=== PATIENT | female | born 1925 | race Two or more races ===

== ENCOUNTER 2017-03-23 10:05 | Inpatient (IN) | payer OTHER ==
[~2017-03-23] VITALS: Ht 160 cm; Wt 80.3 kg
[2017-03-23] MEDS ORDERED: NORVASC5 MG PO (11:06)
[2017-03-23] MEDS ORDERED: NORVASC2.5 M1 PO (11:06)
[2017-03-23] MEDS ORDERED: LEVOTHY PO (11:06)
[2017-03-23] MEDS ORDERED: CATAFLAN PO (11:07)
[2017-03-23] MEDS ORDERED: [UNRECOGNIZED DRUG - OTHER] PO (11:07)
[2017-03-23] MEDS ORDERED: GARLIC1 EACH PO (11:08)
[2017-03-23] MEDS ORDERED: FISH OIL + D31 EACH PO (11:08)
[2017-03-23] MEDS ORDERED: CLONAZEPAM0.5 MG PO (11:08)
[2017-03-23] MEDS ORDERED: OSTERA TABLET1 EACH PO (11:09)
[2017-04-07] MEDS ORDERED: PERCOCET 5-3251 EACH PO (08:18)
[2017-04-07] MEDS ORDERED: CEFADROXIL500 MG PO (08:18)
[2017-04-07] MEDS ORDERED: XARELTO10 MG PO (08:18)
== END 2017-04-07 17:54 | DRG 470 ==
LOC: O/R 04-04 06:24 → SURG 04-04 06:24 → SURH 04-04 09:45 → SURG 04-04 17:33 → SURH 04-04 17:43 → SURG 04-04 17:56
PROVIDERS: Orthopaedic Surgery
PROC: 0MTM0ZZ Resection of Left Hip Bursa and Ligament, Open Approach (ICD-10-PCS; 2017-04-04)
PROC: 0SRB01Z Replacement of Left Hip Joint with Metal Synthetic Substitute, Open Approach (ICD-10-PCS; principal; 2017-04-04 09:45)
PROC: 30233N1 Transfusion of Nonautologous Red Blood Cells into Peripheral Vein, Percutaneous Approach (ICD-10-PCS; 2017-04-05)
DX: M16.12 Unilateral primary osteoarthritis, left hip (principal); D62 Acute posthemorrhagic anemia; E11.9 Type 2 diabetes mellitus without complications; I10 Essential (primary) hypertension; M81.0 Age-related osteoporosis without current pathological fracture; M25.652 Stiffness of left hip, not elsewhere classified; M70.62 Trochanteric bursitis, left hip; E66.8 Other obesity; E07.89 Other specified disorders of thyroid

== ENCOUNTER 2017-04-08 18:02 | Emergency (ER) | payer OTHER ==
[~2017-04-08] VITALS: Ht 160 cm; Wt 80.3 kg
[~2017-04-08 18:02] MED LIST: CATAFLAN PO; CEFADROXIL500 MG PO; CLONAZEPAM0.5 MG PO; FISH OIL + D31 EACH PO; GARLIC1 EACH PO; LEVOTHY PO; NORVASC2.5 M1 PO; NORVASC5 MG PO; OSTERA TABLET1 EACH PO; PERCOCET 5-3251 EACH PO; XARELTO10 MG PO; [UNRECOGNIZED DRUG - OTHER] PO
== END 2017-04-09 08:30 | disposition home or self-care (01) ==
LOC: ER 18:02
DX: J98.11 Atelectasis (principal); R06.02 Shortness of breath